=== PATIENT | female | born 1980 | race Caucasian/White ===

== ENCOUNTER 2024-09-26 14:02 | Emergency (ER) | payer BC, SELFPAY ==
--- NOTE | ~2024-09-26 | XR_ITS ---
EXAMINATION: XR chest 2V DATE: 09/26/2024 15:20 INDICATION: Cough. Upper respiratory infection. TECHNIQUE: Frontal and lateral views of the chest were obtained. COMPARISON: None. FINDINGS: There is no pneumonia, pleural effusion, or pneumothorax. The heart size is normal. IMPRESSION: 1. No acute cardiopulmonary disease. Reviewed, dictated and finalized at location A. LEADER
[2024-09-26 14:14] VITALS: BP 145/85; PULSE 116; RESP 16; TEMP 36.8; O2SAT 100
--- NOTE | 2024-09-26 14:59 | ED.URI ---
HPI - URI/Sore Throat General Chief Complaint: Upper Respiratory Infection Stated Complaint: URI sx Time Seen by Provider: 09/26/24 14:59 Source: patient Mode of arrival: ambulatory Limitations: no limitations History of Present Illness HPI Narrative: Patient is a 44 y/o female who presents to the ED with c/o URI sx's. Patient reports she has had URI symptoms over the last several days. Reports having severe body aches over the weekend, subjective fevers, cough, congestion, fatigue. Has not taken anything for her symptoms. States she did not want to mask the symptoms. Daughter and grandchild have had similar sx's. Does have some chest wall pain with coughing, denies chest pain at rest. Denies shortness of breath. Related Data Allergies Allergy/AdvReac Type Severity Reaction Status Date / Time No Known Allergies Allergy Verified 09/26/24 14:03 Review of Systems Review of Systems: All systems reviewed & are unremarkable except as noted in HPI. All systems reviewed & are unremarkable except as noted in HPI and below Exam Narrative: GENERAL: Mildly ill appearing, well-nourished, non-toxic, in no acute distress. HEAD: Normocephalic, atraumatic. RESPIRATORY: Airway patent, respirations nonlabored. Frequent coughing on exam. No focal lung sounds. CARDIOVASCULAR: Regular rate and rhythm without murmurs, rubs, or gallops. MUSCULOSKELETAL: Moves all extremities. No gross deformities. SKIN: Warm, dry, normal color. NEURO: A&O X3. Speech clear. PSYCHIATRIC: Appropriate mood and affect. Normal interaction. Course Vital Signs Vital signs: Vital Signs Temperature 98.3 F 09/26/24 14:14 Pulse Rate 116 H 09/26/24 14:14 Respiratory Rate 16 09/26/24 14:14 Blood Pressure 145/85 H 09/26/24 14:14 Pulse Oximetry 100 09/26/24 14:14 Oxygen Delivery Room Air 09/26/24 14:14 Temperature 98.3 F 09/26/24 14:14 Pulse Rate 102 H 09/26/24 15:30 Respiratory Rate 16 09/26/24 15:30 Blood Pressure 142/65 H 09/26/24 15:30 Pulse Oximetry 98 09/26/24 15:30 Oxygen Delivery Room Air 09/26/24 15:38 MDM - URI/Sore Throat MDM Narrative Medical decision making narrative: Patient presented to ED with several day history of URI symptoms. Patient mildly tachycardic upon arrival. This was improved by the time of my evaluation. She is afebrile here. Oxygen stable on room air. Denying chest pain or shortness of breath. Viral swabs resulted with influenza A positive. Consistent with clinical picture. Chest x-ray is clear. Symptoms have been ongoing for several days, patient is out of the window for Tamiflu. Discussed further management of influenza at home. Will prescribe Tessalon Perles, Zofran, inhaler as needed for home use. Recommended plenty of rest and hydration, follow-up with PCP for further evaluation. Given return precautions. Discharged in stable condition. Medical Records Attestation: I reviewed the patient's medical records. Lab Data Attestation: I reviewed the patient's lab results. Labs: Lab Results 09/26/24 Range/Units 14:15 Influenza A (RT-PCR) Positive A (Negative) Influenza B (RT-PCR) Negative (Negative) RSV (RT-PCR) Negative (Negative) SARS-CoV-2 RNA (RT-PCR) Negative (Negative) Imaging Data Attestation: I personally reviewed and interpreted this imaging study as follows: Radiologist's impression: ITS Impressions Chest X-Ray 09/26/24 15:23 IMPRESSION: 1. No acute cardiopulmonary disease. Discharge Plan Discharge Clinical Impression: Influenza A Patient Disposition: Home, Self-Care Condition: Stable Instructions: Antibiotic Form, Influenza (ED), Viral Syndrome (ED), Cold Symptoms (ED) Additional Instructions: You were diagnosed with Influenza A today. Isolate at home as you are contagious. Stay well-hydrated at home. Recommend electrolyte rich fluids, Gatorade, Pedialyte, body armor. Utilize Zofran as needed for nausea. Recommend Tessalon Perles as needed for cough. Recommend Tylenol and Ibuprofen around the clock as needed for discomfort and/or fevers. Utilize inhaler as needed for shortness of breath. Recommend [id number]-[id number] cough and cold medicines for symptom relief, Delsym, Mucinex, DayQuil, NyQuil, Sudafed, Robitussin, TheraFlu. Follow with primary care doctor upon resolution of symptoms. Return to the ED if you experience chest pain, difficulty breathing, unable to keep down food or drink, severe pain, or any other symptoms of concern. Patient Language: Portuguese Prescriptions: New benzonatate 200 mg capsule 200 mg PO TID PRN (Reason: cough) Qty: 15 0RF ondansetron 4 mg tablet,disintegrating 4 mg PO Q8H PRN (Reason: nausea and vomiting) Qty: 15 0RF albuterol sulfate 90 mcg/actuation HFA aerosol inhaler 2 puff inhalation QID PRN (Reason: shortness of breath or wheezing) Qty: 6.7 0RF Follow-up/Referrals: PHYSICIAN NOT ON STAFF,NONSTAFF [Non-Staff] - Time of Disposition: 15:27
[2024-09-26 15:05] LABS: Influenza A QL RT-PCR Positive (Negative); Influenza B QL RT-PCR Negative (Negative); RSV RNA, RT-PCR Negative (Negative); SARS-CoV-2 RNA PCR Negative (Negative)
[2024-09-26] MEDS: ACETAMINOPHEN 500 MG TABLET 1000 MG PO (15:29)
[2024-09-26] MEDS: IBUPROFEN 600 MG TABLET PO (15:29)
[2024-09-26] MEDS: BENZONATATE 100 MG CAPSULE 200 MG PO (15:29)
[2024-09-26 15:30] VITALS: BP 142/65; PULSE 102; RESP 16; O2SAT 98
== END 2024-09-26 15:40 | disposition home or self-care (01) ==
PROVIDERS: Emergency Medicine; Emergency Provider Physician Assistant
DX: J10.1 Influenza due to other identified influenza virus with other respiratory manifestations (principal); Z20.822 Contact with and (suspected) exposure to COVID-19
CPT/HCPCS: 71046; 87637; 99283; A9270